=== PATIENT | male | born 1995 | race Caucasian/White ===

== ENCOUNTER 2016-11-19 13:30 | Emergency (ER) | payer OTHER ==
[~2016-11-19] VITALS: Ht 177.8 cm; Wt 66.7 kg
[2016-11-19 13:46] VITALS: TEMP 36.7; Ht 177.8 cm; Wt 66.7 kg
[2016-11-19] MEDS ORDERED: BUPIVACAINE 0.5 % 5 MG/1 ML MPF 30ML VIAL INFIL ONE (14:45)
[2016-11-19] MEDS ORDERED: XYLOCAINE 1%/SOD BICARB 20 ML VIAL INFIL ONE (14:45)
[2016-11-19] MEDS ORDERED: CEPH500C PO (16:13)
[2016-11-19] MEDS ORDERED: CEPHALEXIN 500MG HOME PACK 1 EA BTL PO ONE (16:15)
--- NOTE | 2016-11-19 16:15 | EMERGENCY ROOM VISIT NOTE ---
ED Visit Note First contact with patient: 14:30 CHIEF COMPLAINT: Finger laceration HISTORY OF PRESENT ILLNESS: This 21-year-old male patient presents to the emergency department ambulatory after cutting the left index finger with a knife while trying to open plastic. The bleeding has stopped. Denies weakness or numbness of the finger. The patient has full range of motion of the fingers. The patient rates the pain as stinging and and 4/10. The patient denies any other injuries. The patient's tetanus shot is up to date. The patient was initially seen at [facility] and sent here for further evaluation of possible extensor tendon injury. REVIEW OF SYSTEMS: A 6 system review of systems was completed with positives and pertinent negatives listed in the HPI. ALLERGIES: No known drug allergies MEDICATIONS: No chronic medications PMH: No significant past medical history. SOCIAL HISTORY: The patient is a [employer] student and lives with roommates. PHYSICAL EXAM: Vital Signs: Reviewed Nurse's notes, vital signs stable. GENERAL : This is a 21-year-old male, in no acute distress, well developed, well nourished. SKIN: There is a 1.5 cm long laceration on the dorsal aspect of the left second finger. The laceration is located over the PIP. The edges gape apart with traction. There is no foreign material in the wound and it looks clean. There is no active bleeding. No bony structures noted in the base of the wound. No obvious tendon seen in the base of the wound. Patient has full flexion of the finger, but strength of extension at the PIP is decreased. Full range of motion of the wrist and other fingers. Capillary refill less than 2 seconds. Normal sensation to light and sharp touch. EMERGENCY DEPARTMENT COURSE: I examined the patient. Exam is consistent with an extensor tendon injury. Case was discussed with Dr. Richards of orthopedics , who will follow-up with the patient this week in the office. I spoke with both of the patient's parents, who are physicians and they were agreeable with this plan. Verbal consent was obtained to perform the procedure. Using sterile technique the wound was cleansed with Betadine. 6 ml of a 1:1 solution of bupivacaine and 1% buffered lidocaine was used to perform a digital block to anesthetize the patient. The area was sterilely draped. Once the patient was anesthetized , the wound was copiously irrigated under pressure with sterile saline. The wound was explored and there were no deep structures injured. The laceration was repaired using 4 simple interrupted 5-0 nylon sutures. The patient tolerated the procedure well. Hemostasis was achieved. The area was cleaned with sterile saline and dressed with bacitracin ointment and bandage. He was placed in a long metal finger splint. He is given a prescription for Keflex to prevent infection. The patient was discharged home in good condition. DIAGNOSIS: Finger laceration Current/Historical Medications Scheduled Cephalexin Monohydrate (Keflex), 500 MG PO QID Allergies Coded Allergies: No Known Allergies (Unverified , 11/19/16) Vital Signs Date Time Temp Pulse Resp B/P (MAP) Pulse Ox O2 Delivery O2 Flow Rate FiO2 11/19/16 16:51 80 20 117/71 100 11/19/16 15:53 82 16 140/73 11/19/16 13:46 36.7 60 16 140/84 99 Room Air Medications Administered Medications (Trade) Dose Ordered Sig/Mik Route Start Time Stop Time Status Last Admin Dose Admin Lidocaine HCl (Buffered Lidocaine 1% Inj) 20 ml ONE ONCE INFIL 11/19/16 14:45 11/19/16 14:46 DC 11/19/16 14:54 20 ML Bupivacaine HCl (Marcaine 0.5% MPF Inj) 30 ml NOW ONCE INFIL 11/19/16 14:45 11/19/16 14:46 DC 11/19/16 14:53 30 ML Cephalexin Monohydrate (Keflex 500MG Home Pack) 1 homepack NOW ONCE PO 11/19/16 16:15 11/19/16 16:16 DC 11/19/16 16:50 1 HOMEPACK Departure Information Impression Primary Impression: Laceration of finger with tendon involvement Dispostion Home / Self-Care Condition GOOD Prescriptions Cephalexin Monohydrate (Keflex) 500 Mg Cap 500 MG PO QID for 7 Days, #28 CAP Prov: Alicia Atwood, LUKAS 11/19/16 Referrals No Doctor, Assigned (PCP) Efraín Richards MD Patient Instructions [facility] Additional Instructions You have received 4 sutures on your finger. Call Dr. Richards's office Sunday to schedule follow-up on Sunday. Proper wound care is essential for adequate wound healing and infection prevention. You can shower and clean the wound with soap and water. Do not scour over the wound, pat dry with a towel. Do not submerse the wound (i.e. bathe or dish wash) until the sutures have been removed. You can use an antibiotic ointment with a dressing over the wound for the next 3-4 days. After this time you may leave the wound dry and open to the air. If crust develops over the wound you can use a Q-tip to apply a 1:1 peroxide:water solution to clean the wound. Keep the splint in place unless showering until follow-up with Dr. Richards. Look for signs of infection of the wound including: increased pain, swelling, foul discharge, streaking, or increased temperature. If any of these are noticed you should return to the Emergency Department for further assessment and treatment. As with any laceration you may have received nerve damage to the surrounding tissues. This damage may or may not be permanent. You should keep the area covered with sunscreen for the first 6 months to 1 year when at risk for exposure to help minimize scarring. You can also use scar reducing creams or Vitamin E oil to help minimize scarring. For pain control, you can use the following dhlw-pry-zikxihc medicines (if >12 yo): - Regular strength (325mg/tab) Tylenol (acetaminophen) 2 tabs every 4-6 hours as needed. Do not exceed 12 tablets in a 24 hour period. Avoid taking more than 4 grams (4000 mg) of Tylenol per day. This includes any other sources of acetaminophen you may take on a regular basis. - Regular strength (200 mg/tab) Advil (ibuprofen) 1-2 tabs every 4-6 hours as needed. Do not exceed a dose of 3200 mg per day. Keflex as prescribed to prevent infection. Return to the emergency department if your symptoms worsen despite treatment course outlined above. Problem Qualifiers Primary Impression: Laceration of finger with tendon involvement Encounter type: initial encounter Qualified Codes: S61.219A - Laceration without foreign body of unspecified finger without damage to nail, initial encounter; S66.929A - Laceration of unspecified muscle, fascia and tendon at wrist and hand level, unspecified hand, initial encounter
[2016-11-19 16:51] VITALS: BP 117/71; PULSE 80; O2SAT 100
== END 2016-11-19 16:52 | disposition home or self-care (01) ==
LOC: C.EDB 13:33 → C.EDD 16:52
DX: S61.211A Laceration without foreign body of left index finger without damage to nail, initial encounter (principal); S66.321A Laceration of extensor muscle, fascia and tendon of left index finger at wrist and hand level, initial encounter; W26.0XXA Contact with knife, initial encounter